=== PATIENT | female | born 1980 | race Caucasian/White ===

== ENCOUNTER 2017-06-07 10:22 | Outpatient (CLI) | payer MEDICAID ==
[~2017-06-07 10:22] MED LIST: AZIT250T PO; DIAZ2TAB PO; GUAI600T76 PO
== END 2017-06-07 23:59 | disposition home or self-care (01) ==
LOC: RAD 10:22
PROVIDERS: ATTEND Family Medicine
DX: R56.9 Unspecified convulsions (principal); Z87.74 Personal history of (corrected) congenital malformations of heart and circulatory system
CPT/HCPCS: 95816